=== PATIENT | female | born 1990 | race American Indian/Alaskan Native ===

== ENCOUNTER 2016-09-02 12:01 | Outpatient (CLI) | payer MEDICAID ==
[2016-09-02 12:29] VITALS: BP 92/58
--- NOTE | 2016-09-02 14:40 | Ultrasound Report ---
OB LIMITED History: well being, abdominal trauma and pain. Technique: Transabdominal ultrasound with Doppler interrogation. Gestation: Single Position: Cephalic Placenta: Posterior fundal Placental Grade: 1 Heart Rate: 138 BPM Cervical length: 3.4 cm (Normal > 3 cm)
[2016-09-02] MEDS ORDERED: LACTATED RINGERS 500 ML IV ONE (14:44)
== END 2016-09-02 14:56 | disposition home or self-care (01) ==
LOC: TRG 12:01
PROVIDERS: ATTEND Obstetrics & Gynecology
DX: O26.899 Other specified pregnancy related conditions, unspecified trimester (principal); O71.9 Obstetric trauma, unspecified; R10.9 Unspecified abdominal pain; O77.9 Labor and delivery complicated by fetal stress, unspecified; Z3A.00 Weeks of gestation of pregnancy not specified
CPT/HCPCS: 36415; 59025; 76815; 80048; 80074; 81001; 85025; 93005; 93010; 96360